=== PATIENT | male | born 1940 | race Caucasian/White ===

== ENCOUNTER 2017-02-26 00:21 | Emergency (ER) | payer MEDICARE, OTHER ==
[2017-02-26 00:39] VITALS: BP 145/88
[2017-02-26] MEDS ORDERED: Lidocaine 2% Jelly 10 ML Urojet ONE (00:57)
--- NOTE | 2017-02-26 00:59 | EDM.PDOC ---
ED HPI GENERAL MEDICAL PROBLEM - General Chief Complaint: Genitourinary Problem Stated Complaint: TROUBLE URINATING Time Seen by Provider: 02/26/17 00:26 Source of Information: Reports: Patient, Family History Limitations: Reports: No Limitations - History of Present Illness INITIAL COMMENTS - FREE TEXT/NARRATIVE: This is a 76-year-old male. Since yesterday evening he has had frequent urges to go urinate and he has been unable. Apparently Tuesday morning he went to see his doctor because he was having problems urinating and they placed a Johansen catheter but got no urine out. He states prior to it suddenly stopping last evening he was able to dribble a little bit but now he can't dribble at all. He really doesn't have a history of urinary retention though he has seen a urologist about 1 month ago for what appears to be a enlarged prostate and possibly a prostate infection when he was placed on Cipro for which she is taking now. He denies any fever or chills he denies any other acute symptoms. Bladder Pain Score (Numeric/FACES): 6 - Related Data Allergies Allergy/AdvReac Type Severity Reaction Status Date / Time No Known Allergies Allergy Verified 02/26/17 00:31 Home Meds: Home Meds Lisinopril 5 mg PO DAILY 03/08/14 [History] Vitamin E 1 cap PO DAILY 03/08/14 [History] atorvaSTATin [Lipitor] 10 mg PO QPM 03/08/14 [History] metFORMIN [Glucophage] 1,000 mg PO BID 03/08/14 [History] Aspirin [Halfprin] 81 mg PO DAILY 02/26/17 [History] Ciprofloxacin HCl [Cipro] 500 mg PO BID 02/26/17 [History] Sildenafil Citrate [Sildenafil] 20 mg PO DAILY PRN 02/26/17 [History] Tamsulosin [Flomax] 0.4 mg PO DAILY 02/26/17 [History] Social & Family History - Tobacco Use Smoking Status *Q: Former Smoker Years of Tobacco use: 5 Used Tobacco, but Quit: Yes Month Tobacco Last Used: 20 YRS AGO Second Hand Smoke Exposure: No - Alcohol Use Days Per Week of Alcohol Use: 0 Number of Drinks Per Day: 0 Total Drinks Per Week: 0 - Recreational Drug Use Recreational Drug Use: No Drug Use in Last 12 Months: No ED ROS GENERAL - Review of Systems Review Of Systems: See Below Constitutional: Denies: Fever, Chills HEENT: Reports: No Symptoms Respiratory: Reports: No Symptoms Cardiovascular: Reports: No Symptoms Endocrine: Reports: No Symptoms GI/Abdominal: Reports: Abdominal Pain. Denies: Nausea, Vomiting : Reports: Urgency, Urinary Retention Musculoskeletal: Reports: No Symptoms Skin: Reports: No Symptoms Neurological: Reports: No Symptoms Psychiatric: Reports: No Symptoms Hematologic/Lymphatic: Reports: No Symptoms ED EXAM, RENAL/ - Physical Exam Exam: See Below Exam Limited By: No Limitations General Appearance: Alert, WD/WN, No Apparent Distress Eye Exam: Bilateral Eye: Normal Inspection Ears: Normal External Exam Nose: Normal Inspection Throat/Mouth: Normal Inspection, Normal Lips, Normal Voice, No Airway Compromise Head: Normocephalic Neck: Supple Respiratory/Chest: No Respiratory Distress, Lungs Clear Cardiovascular: Regular Rate, Rhythm, No Murmur GI/Abdominal: Soft, Other (He does appear to have a small bulge of a bladder in the lower abdomen noted somewhat tender on palpation) Back Exam: Full Range of Motion Extremities: Normal Inspection, Normal Range of Motion Neurological: Alert, Oriented Psychiatric: Normal Affect, Normal Mood Skin Exam: Warm, Dry Course - Vital Signs Last Recorded V/S: Last Vital Signs Temp 98.5 F 02/26/17 00:36 Pulse 88 02/26/17 00:36 Resp 18 02/26/17 00:36 BP 145/88 H 02/26/17 00:36 Pulse Ox 97 02/26/17 00:36 - Orders/Labs/Meds Meds: Medications Discontinued Medications Generic Name Dose Route Start Last Admin Trade Name Tamir PRN Reason Stop Dose Admin Lidocaine HCl Confirm 02/26/17 00:57 Xylocaine 2% Jelly Administered 02/26/17 00:58 Dose 10 ml .ROUTE .STK-MED ONE - Re-Assessments/Exams Free Text/Narrative Re-Assessment/Exam: 02/26/17 01:31 Patient had approximately 750 mL of urine out. He feels so much better no abdominal pain now. His abdomen is soft and nontender. We will place a leg bag on him and gave him Johansen catheter care. He is to follow-up with Dr. Lyle on Tuesday morning for recheck and catheter removal. Departure - Departure Time of Disposition: 01:32 Disposition: Home, Self-Care 01 Condition: Good Clinical Impression: Urinary retention Benign prostatic hyperplasia Qualifiers: Lower urinary tract symptom presence: symptoms present Lower urinary tract symptom detail: urinary retention Qualified Code(s): N40.1 - Benign prostatic hyperplasia with lower urinary tract symptoms; R33.8 - Other retention of urine ; R33.8 - Other retention of urine - Discharge Information Referrals: Sajan Lyle MD [Primary Care Provider] - Forms: ED Department Discharge Additional Instructions: Continue with the Cipro and the Flomax, continue with the Johansen catheter care as instructed, follow-up with your doctor on Tuesday morning for reevaluation and possible catheter removal, return to the ER if your symptoms worsen or you run a fever greater than 101
[2017-02-26] MEDS ORDERED: Lidocaine 2% Jelly 10 ML Urojet MUCMEM ONE (01:53)
== END 2017-02-26 02:00 | disposition home or self-care (01) ==
LOC: JD.ED 00:21
DX: N40.1 Benign prostatic hyperplasia with lower urinary tract symptoms (principal); R33.8 Other retention of urine; Z79.899 Other long term (current) drug therapy; Z79.84 Long term (current) use of oral hypoglycemic drugs; Z79.82 Long term (current) use of aspirin; Z87.891 Personal history of nicotine dependence
CPT/HCPCS: 51702; 51798; 99283; 99283-25

== ENCOUNTER 2017-02-28 19:38 | Emergency (ER) | payer MEDICARE, OTHER ==
[2017-02-28 19:53] VITALS: BP 189/77
--- NOTE | 2017-02-28 21:01 | EDM.PDOC ---
ED HPI GENERAL MEDICAL PROBLEM - General Chief Complaint: General Stated Complaint: CATH TAKEN OUT/UNABLE TO URINATE Time Seen by Provider: 02/28/17 20:43 Source of Information: Reports: Patient History Limitations: Reports: No Limitations - History of Present Illness INITIAL COMMENTS - FREE TEXT/NARRATIVE: Patient is a 76-year-old male who presents to the ED complaining of urinary retention and increasing pain to his lower abdomen. Patient was evaluated in the ED this past Tuesday for urinary retention. Approximately 1 L of urine was drained out. Catheter was placed and then removed today at approximately 12:00 by PCP. Patient states since then has been unable to void. He continues to have increasing pain to his lower abdomen. He has a sensation to urinate but unable to. He denies any additional complaints. Bladder Pain Score (Numeric/FACES): 7 - Related Data Allergies Allergy/AdvReac Type Severity Reaction Status Date / Time No Known Allergies Allergy Verified 02/28/17 19:54 Home Meds: Home Meds Lisinopril 5 mg PO DAILY 03/08/14 [History] Vitamin E 1 cap PO DAILY 03/08/14 [History] atorvaSTATin [Lipitor] 10 mg PO QPM 03/08/14 [History] metFORMIN [Glucophage] 1,000 mg PO BID 03/08/14 [History] Aspirin [Halfprin] 81 mg PO DAILY 02/26/17 [History] Ciprofloxacin HCl [Cipro] 500 mg PO BID 02/26/17 [History] Sildenafil Citrate [Sildenafil] 20 mg PO DAILY PRN 02/26/17 [History] Tamsulosin [Flomax] 0.4 mg PO DAILY 02/26/17 [History] Past Medical History Cardiovascular History: Reports: High Cholesterol Genitourinary History: Reports: Prostate Disorder, Retention, Urinary Psychiatric History: Reports: None Social & Family History - Family History Family Medical History: Noncontributory - Tobacco Use Smoking Status *Q: Never Smoker Years of Tobacco use: 5 Used Tobacco, but Quit: Yes Month Tobacco Last Used: 20 YRS AGO Second Hand Smoke Exposure: No - Alcohol Use Days Per Week of Alcohol Use: 0 Number of Drinks Per Day: 0 Total Drinks Per Week: 0 - Recreational Drug Use Recreational Drug Use: No Drug Use in Last 12 Months: No ED ROS GENERAL - Review of Systems Review Of Systems: ROS reveals no pertinent complaints other than HPI. ED EXAM, GENERAL - Physical Exam Exam: See Below Exam Limited By: No Limitations General Appearance: Alert, WD/WN, Mild Distress Ears: Hearing Grossly Normal Nose: Normal Inspection Throat/Mouth: Normal Voice, No Airway Compromise Neck: Normal Inspection, Supple Respiratory/Chest: No Respiratory Distress, Lungs Clear, Normal Breath Sounds, No Accessory Muscle Use Cardiovascular: Normal Peripheral Pulses, Regular Rate, Rhythm Peripheral Pulses: 2+: Radial (L) GI/Abdominal: Normal Bowel Sounds, Soft, No Organomegaly, No Distention, Tender (Suprapubic region) Neurological: Alert, Oriented, Normal Cognition, No Motor/Sensory Deficits Psychiatric: Normal Affect, Normal Mood Skin Exam: Warm, Dry, Intact, Normal Color Course - Vital Signs Last Recorded V/S: Last Vital Signs Temp 97.6 F 02/28/17 19:50 Pulse 85 02/28/17 19:50 Resp 20 02/28/17 19:50 BP 189/77 H 02/28/17 19:50 Pulse Ox 100 02/28/17 19:50 - Re-Assessments/Exams Free Text/Narrative Re-Assessment/Exam: Johansen has been ordered. 2143 patient had approximately 600 mL of urine after Johansen placement. Patient's pain has resolved. Will will discharge patient home with a leg bag. He will follow up with urologist in the next few days for reevaluation. Discharge instructions as documented. Departure - Departure Time of Disposition: 21:46 Disposition: Home, Self-Care 01 Condition: Good Clinical Impression: Urinary retention due to benign prostatic hyperplasia, Urinary retention Benign prostatic hyperplasia Qualifiers: Lower urinary tract symptom presence: symptoms present Lower urinary tract symptom detail: urinary retention Qualified Code(s): N40.1 - Benign prostatic hyperplasia with lower urinary tract symptoms - Discharge Information Instructions: Benign Prostatic Hyperplasia, Acute Urinary Retention, Male, Easy -to-Read Referrals: Sajan Lyle MD [Primary Care Provider] - Forms: ED Department Discharge Additional Instructions: Please follow up with urologist this week for the first part of next week. Call and make an appointment tomorrow. Leave the Johansen in place until evaluated by urology. Return to the ED for any new or worsening symptoms.
== END 2017-02-28 22:18 | disposition home or self-care (01) ==
LOC: JD.ED 19:38
DX: N40.1 Benign prostatic hyperplasia with lower urinary tract symptoms (principal); R33.8 Other retention of urine; E78.00 Pure hypercholesterolemia, unspecified; Z79.899 Other long term (current) drug therapy; Z79.82 Long term (current) use of aspirin
CPT/HCPCS: 51702; 99283-25; 99284

== ENCOUNTER 2019-01-18 11:08 | Emergency (ER) | payer MEDICARE, OTHER ==
[2019-01-18 11:18] VITALS: BP 143/58; PULSE 57
[2019-01-18] MEDS ORDERED: Sodium Chloride 0.9% 500 ML IV ONE (11:44)
--- NOTE | 2019-01-18 11:46 | EDM.PDOC ---
ED HPI GENERAL MEDICAL PROBLEM - General Chief Complaint: Syncope Stated Complaint: [facility] Time Seen by Provider: 01/18/19 11:26 Source of Information: Reports: Patient History Limitations: Reports: No Limitations - History of Present Illness INITIAL COMMENTS - FREE TEXT/NARRATIVE: 78-year-old male arrives via [facility] following a syncopal episode. Patient reports that he was at [employer]. He was carrying a heavy basket and just finished [employer] shopping. He was at the counter when he began to feel lightheaded and had a syncopal episode. Reportedly he did vomit. Bystanders report he did hit his head. He states he does remember falling and feeling lightheaded prior to the syncopal episode. He does not recall hitting his head. At this time he states that he feels good. He denies any headaches, neck pain, nausea, chest pain, shortness of breath, fevers or chills. He denies any numbness or tingling in his extremities. He has a small hematoma to the dorsal right hand. He does take an 81 mg aspirin daily. Patient had quadruple bypass on November 29 at [facility] in [place]. He states he did not have an NH but he saw his primary because he "couldn't get air ". He states since then he has been feeling much better. His shortness of breath has significantly improved. Primary care providers Dr. Mills. Cardio vascular surgeon Dr. Govea and senior quality analyst Dr. Ramiro Alfaro. Reportedly did have a carotid ultrasound recently prior to the bypass and this was reportedly normal. Her it is a little more side. Heart rate upon arrival is 57 bpm. His metoprolol was recently cut from 25 mg twice a day to 12.5 mg daily. He states since his bypass his heart has been slower. Was faster prior to bypass. Onset: Today, Sudden - Related Data Allergies Allergy/AdvReac Type Severity Reaction Status Date / Time No Known Allergies Allergy Verified 01/18/19 12:09 Home Meds: Home Meds Lisinopril 5 mg PO DAILY 03/08/14 [History] Vitamin E 1 cap PO DAILY 03/08/14 [History] atorvaSTATin [Lipitor] 10 mg PO QPM 03/08/14 [History] metFORMIN [Glucophage] 1,000 mg PO BID 03/08/14 [History] Aspirin [Halfprin] 81 mg PO DAILY 02/26/17 [History] Ciprofloxacin HCl [Cipro] 500 mg PO BID 02/26/17 [History] Sildenafil Citrate [Sildenafil] 20 mg PO DAILY PRN 02/26/17 [History] Tamsulosin [Flomax] 0.4 mg PO DAILY 02/26/17 [History] Past Medical History Cardiovascular History: Reports: Bypass, High Cholesterol, Hypertension Genitourinary History: Reports: Prostate Disorder, Retention, Urinary Other Genitourinary History: prostate cancer, 45 treatments and in remission now Psychiatric History: Reports: None Endocrine/Metabolic History: Reports: Diabetes, Type II Other Hematologic History: takes iron daily Oncologic (Cancer) History: Reports: Prostate - Past Surgical History Cardiovascular Surgical History: Reports: Coronary Artery Bypass Other Cardiovascular Surgeries/Procedures: x4 november 2018 GI Surgical History: Reports: Colonoscopy, Hernia Repair/Other, Polypectomy, Other (See Below) Other GI Surgeries/Procedures: hernia repair x2, 12inches of bowel removed with polyp removal Social & Family History - Family History Family Medical History: Noncontributory - Tobacco Use Smoking Status *Q: Never Smoker - Caffeine Use Caffeine Use: Reports: Coffee ED ROS GENERAL - Review of Systems Review Of Systems: See Below Constitutional: Denies: Fever, Chills Respiratory: Denies: Shortness of Breath, Cough Cardiovascular: Reports: Lightheadedness, Syncope. Denies: Chest Pain, Edema GI/Abdominal: Reports: Vomiting. Denies: Abdominal Pain, Nausea Musculoskeletal: Denies: Neck Pain Skin: Reports: Wound (hematoma to the right dorsal hand) Neurological: Reports: Syncope. Denies: Headache, Numbness, Tingling - Physical Exam Exam: See Below Exam Limited By: No Limitations General Appearance: Alert, WD/WN, No Apparent Distress Eye Exam: Bilateral Eye: Normal Inspection, PERRL Ears: Normal External Exam, Normal Canal, Hearing Grossly Normal, Normal TMs Nose: Normal Inspection Throat/Mouth: Normal Inspection, Normal Lips, Normal Oropharynx, Normal Voice, No Airway Compromise Neck: Normal Inspection. No: Carotid Bruit Respiratory/Chest: No Respiratory Distress, Lungs Clear, Normal Breath Sounds Cardiovascular: Normal Peripheral Pulses, No Murmur, Bradycardia GI/Abdominal: Soft, Non-Tender, No Distention Neuro Exam (Abbreviated): Alert, Oriented, Normal Cognition Psychiatric: Normal Affect, Normal Mood Skin Exam: Warm, Dry, Normal Color EKG INTERPRETATION EKG Date: 01/18/19 Time: 12:25 Rhythm: Other (sinus bradycardia) Rate (Beats/Min): 50 Girard: Normal P-Wave: Present QRS: Normal ST-T: Normal QT: Normal Course - Vital Signs Last Recorded V/S: Last Vital Signs Temp 97.2 F 01/18/19 11:13 Pulse 57 L 01/18/19 11:13 Resp 16 01/18/19 11:13 BP 143/58 H 01/18/19 11:13 Pulse Ox 100 01/18/19 11:13 Orthostatic Blood Pressure [ 115/50 Standing] Orthostatic Blood Pressure [ 147/58 Supine] - Orders/Labs/Meds Orders: Active Orders 24 hr Category Date Time Status Blood Glucose Check, Bedside [RC] ONETIME Care 01/18/19 11:26 Active Cardiac Monitoring [RC] . DIRECTED Care 01/18/19 11:36 Active EKG Documentation Completion [RC] ASDIRECTED Care 01/18/19 11:37 Active Orthostatic Vital Signs [RC] ASDIRECTED Care 01/18/19 11:26 Active EKG 12 Lead [EK] Stat Ther 01/18/19 11:36 Ordered Labs: Laboratory Tests 01/18/19 01/18/19 01/18/19 Range/Units 11:50 11:50 11:50 WBC 5.36 (4.23-9.07) K/mm3 RBC 3.61 L (4.63-6.08) M/mm3 Hgb 10.0 L D (13.7-17.5) gm/dl Hct 31.5 L (40.1-51.0) % MCV 87.3 D (79.0-92.2) fl MCH 27.7 (25.7-32.2) pg MCHC 31.7 L (32.2-35.5) g/dl RDW Std Deviation 47.1 H (35.1-43.9) fL Plt Count 188 (163-337) K/mm3 MPV 9.2 L (9.4-12.3) fl Neut % (Auto) 86.0 H (34.0-67.9) % Lymph % (Auto) 7.3 L (21.8-53.1) % Sac % (Auto) 5.2 L (5.3-12.2) % Eos % (Auto) 0.9 (0.8-7.0) Baso % (Auto) 0.2 (0.1-1.2) % Neut # (Auto) 4.61 (1.78-5.38) K/mm3 Lymph # (Auto) 0.39 L (1.32-3.57) K/mm3 Sac # (Auto) 0.28 L (0.30-0.82) K/mm3 Eos # (Auto) 0.05 (0.04-0.54) K/mm3 Baso # (Auto) 0.01 (0.01-0.08) K/mm3 Manual Slide Review Abnormal smear Sodium 140 (136-145) mEq/L Potassium 4.5 (3.5-5.1) mEq/L Chloride 105 (98-107) mEq/L Carbon Dioxide 26 (21-32) mEq/L Anion Gap 13.5 (5-15) BUN 20 H (7-18) mg/dL Creatinine 1.8 H (0.7-1.3) mg/dL Est Cr Clr Drug Dosing 34.37 mL/min Estimated GFR (MDRD) 37 (>60) mL/min BUN/Creatinine Ratio 11.1 L (14-18) Glucose 161 H (83-115) mg/dL POC Glucose (83-110) mg/dL Calcium 8.8 (8.5-10.1) mg/dL Magnesium 1.7 L (1.8-2.4) mg/dl Total Bilirubin 0.3 (0.2-1.0) mg/dL AST 8 L (15-37) U/L ALT 13 L (16-63) U/L Alkaline Phosphatase 53 (46-116) U/L Troponin I < 0.017 (0.00-0.056) ng/mL NT-Pro-B Natriuret Pep 1077 H (0-450) pg/mL Total Protein 6.0 L (6.4-8.2) g/dl Albumin 3.1 L (3.4-5.0) g/dl Globulin 2.9 gm/dL Albumin/Globulin Ratio 1.1 (1-2) Urine Color (Yellow) Urine Appearance (Clear) Urine pH (5.0-8.0) Ur Specific [place] (1.005-1.030) Urine Protein (Negative) Urine Glucose (UA) (Negative) Urine Ketones (Negative) Urine Occult Blood (Negative) Urine Nitrite (Negative) Urine Bilirubin (Negative) Urine Urobilinogen (0.2-1.0) Ur Leukocyte Esterase (Negative) Urine RBC (0-5) /hpf Urine WBC (0-5) /hpf Ur Squamous Epith Cells (0-5) /hpf Urine Bacteria (FEW) /hpf Hyaline Casts (0-5) /lpf Urine Mucus (FEW) /hpf 01/18/19 01/18/19 01/18/19 Range/Units 12:52 13:00 14:14 WBC (4.23-9.07) K/mm3 RBC (4.63-6.08) M/mm3 Hgb (13.7-17.5) gm/dl Hct (40.1-51.0) % MCV (79.0-92.2) fl MCH (25.7-32.2) pg MCHC (32.2-35.5) g/dl RDW Std Deviation (35.1-43.9) fL Plt Count (163-337) K/mm3 MPV (9.4-12.3) fl Neut % (Auto) (34.0-67.9) % Lymph % (Auto) (21.8-53.1) % Sac % (Auto) (5.3-12.2) % Eos % (Auto) (0.8-7.0) Baso % (Auto) (0.1-1.2) % Neut # (Auto) (1.78-5.38) K/mm3 Lymph # (Auto) (1.32-3.57) K/mm3 Sac # (Auto) (0.30-0.82) K/mm3 Eos # (Auto) (0.04-0.54) K/mm3 Baso # (Auto) (0.01-0.08) K/mm3 Manual Slide Review Sodium (136-145) mEq/L Potassium (3.5-5.1) mEq/L Chloride (98-107) mEq/L Carbon Dioxide (21-32) mEq/L Anion Gap (5-15) BUN (7-18) mg/dL Creatinine (0.7-1.3) mg/dL Est Cr Clr Drug Dosing mL/min Estimated GFR (MDRD) (>60) mL/min BUN/Creatinine Ratio (14-18) Glucose (83-115) mg/dL POC Glucose 136 H (83-110) mg/dL Calcium (8.5-10.1) mg/dL Magnesium (1.8-2.4) mg/dl Total Bilirubin (0.2-1.0) mg/dL AST (15-37) U/L ALT (16-63) U/L Alkaline Phosphatase (46-116) U/L Troponin I < 0.017 (0.00-0.056) ng/mL NT-Pro-B Natriuret Pep (0-450) pg/mL Total Protein (6.4-8.2) g/dl Albumin (3.4-5.0) g/dl Globulin gm/dL Albumin/Globulin Ratio (1-2) Urine Color Yellow (Yellow) Urine Appearance Clear (Clear) Urine pH 5.5 (5.0-8.0) Ur Specific [place] 1.020 (1.005-1.030) Urine Protein Negative (Negative) Urine Glucose (UA) Negative (Negative) Urine Ketones Negative (Negative) Urine Occult Blood Negative (Negative) Urine Nitrite Negative (Negative) Urine Bilirubin Negative (Negative) Urine Urobilinogen 1.0 (0.2-1.0) Ur Leukocyte Esterase Negative (Negative) Urine RBC 0-5 (0-5) /hpf Urine WBC 0-5 (0-5) /hpf Ur Squamous Epith Cells 0-5 (0-5) /hpf Urine Bacteria Rare (FEW) /hpf Hyaline Casts 0-5 (0-5) /lpf Urine Mucus Few (FEW) /hpf Meds: Medications Discontinued Medications Generic Name Dose Route Start Last Admin Trade Name Freq PRN Reason Stop Dose Admin Sodium Chloride 500 mls @ 999 mls/hr 01/18/19 11:44 01/18/19 12:23 Normal Saline IV 01/18/19 12:14 999 mls/hr ONETIME ONE Administration - Radiology Interpretation Free Text/Narrative:: Chest: Two views of the chest were obtained. Comparison: No prior chest x-ray, prior chest CT of 08/13/13. Findings: Heart size and mediastinum are normal. Tortuous thoracic aorta is seen. Lungs show no acute parenchymal change. Diffuse degenerative spurring within the spine is seen with flowing osteophytes. Impression: 1. Nothing acute is appreciated on two-view chest x-ray. Head CT Technique: Multiple axial sections through the brain were obtained. Intravenous contrast was not utilized. Comparison: No prior intracranial imaging is available. Findings: Ventricles along with basal cisterns and sulci over the convexities are moderately prominent. 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 No other abnormal parenchymal densities are seen. No evidence of intracranial hemorrhage. No midline shift or mass effect is seen. Atherosclerotic calcification is noted within the carotid siphon. Very minimal area of mucosal thickening are scattered within the ethmoid sinuses which is most likely incidental. Visualized mastoid sinuses are clear. No acute calvarial abnormality is seen. Impression: 1. Senescent change as noted above. Nothing acute is appreciated on noncontrast head CT exam. - Re-Assessments/Exams Free Text/Narrative Re-Assessment/Exam: 01/18/19 13:49 Checked on the patient. He feels fine. His heart has been in the upper 40s to 50s and he is orthostatic. I feel the syncope today was related more to his drop in blood pressure and his low heart rate. We will repeat his troponin. He has no other complaints at this time and is resting comfortably. I reviewed the labs, ekg and imaging with the patient and his . 01/18/19 15:07 Repeat trop is negativ at <0.017. Discussed with Dr. Renyoso recommend holding beta heena while HR is <60. Should check vitals at home daily. Reviewed labs and plan with patient and his . Discharge instructions as documented. Departure - Departure Time of Disposition: 15:08 Disposition: Home, Self-Care 01 Condition: Fair Clinical Impression: Syncope, Orthostatic hypotension, Bradycardia - Discharge Information *PRESCRIPTION DRUG MONITORING PROGRAM REVIEWED*: No *COPY OF PRESCRIPTION DRUG MONITORING REPORT IN PATIENT WILLOW: No Instructions: Orthostatic Hypotension, Bradycardia, Adult, Syncope, Easy-to- Read Referrals: Sajan Lyle MD [Primary Care Provider] - Forms: ED Department Discharge Additional Instructions: Check your b/p and HR daily. Hold the metoprolol 12.5mg if your heart rate is less than 60. Follow-up with cardiology next week as planned. Make sure you are getting plenty of fluids. Take your time getting up and do not over exert your self, no lifting > 10 lbs. Please return to the ER should your symptoms change or worsen. - My Orders Last 24 Hours: My Active Orders 01/18/19 11:26 Blood Glucose Check, Bedside [RC] ONETIME Orthostatic Vital Signs [RC] ASDIRECTED 01/18/19 11:36 Cardiac Monitoring [RC] . DIRECTED EKG 12 Lead [EK] Stat 01/18/19 11:37 EKG Documentation Completion [RC] ASDIRECTED - Assessment/Plan Last 24 Hours: My Active Orders 01/18/19 11:26 Blood Glucose Check, Bedside [RC] ONETIME Orthostatic Vital Signs [RC] ASDIRECTED 01/18/19 11:36 Cardiac Monitoring [RC] . DIRECTED EKG 12 Lead [EK] Stat 01/18/19 11:37 EKG Documentation Completion [RC] ASDIRECTED
--- NOTE | 2019-01-18 12:28 | CR ---
Chest: Two views of the chest were obtained. Comparison: No prior chest x-ray, prior chest CT of 08/13/13. Findings: Heart size and mediastinum are normal. Tortuous thoracic aorta is seen. Lungs show no acute parenchymal change. Diffuse degenerative spurring within the spine is seen with flowing osteophytes. Impression: 1. Nothing acute is appreciated on two-view chest x-ray. Diagnostic code #2
--- NOTE | 2019-01-18 12:36 | CT ---
Head CT Technique: Multiple axial sections through the brain were obtained. Intravenous contrast was not utilized. Comparison: No prior intracranial imaging is available. Findings: Ventricles along with basal cisterns and sulci over the convexities are moderately prominent. 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 No other abnormal parenchymal densities are seen. No evidence of intracranial hemorrhage. No midline shift or mass effect is seen. Atherosclerotic calcification is noted within the carotid siphon. Very minimal areas of mucosal thickening are scattered within the ethmoid sinuses which is most likely incidental. Visualized mastoid sinuses are clear. No acute calvarial abnormality is seen. Impression: 1. Senescent change as noted above. Nothing acute is appreciated on noncontrast head CT exam. Diagnostic code #2
== END 2019-01-18 15:20 | disposition home or self-care (01) ==
LOC: JD.ED 11:08
DX: I95.1 Orthostatic hypotension (principal); R00.1 Bradycardia, unspecified; I10 Essential (primary) hypertension; E78.5 Hyperlipidemia, unspecified; Z79.82 Long term (current) use of aspirin; Z79.899 Other long term (current) drug therapy
CPT/HCPCS: 36415; 70450; 71046; 80053; 81001; 82962; 83735; 83880; 84484; 85025; 93005; 99285; J7040; 93010; 99284

== ENCOUNTER 2019-08-25 12:39 | Emergency (ER) | payer MEDICARE, OTHER ==
--- NOTE | 2019-08-25 14:34 | EDM.PDOC ---
ED HPI GENERAL MEDICAL PROBLEM - General Chief Complaint: ENT Problem Stated Complaint: LT EAR PLUGGED UP Time Seen by Provider: 08/25/19 13:49 Source of Information: Reports: Patient History Limitations: Reports: No Limitations - History of Present Illness INITIAL COMMENTS - FREE TEXT/NARRATIVE: Demetrio Hawk is a 79-year-old male who presents the emergency room with chief complaints of bilateral ears clogged. He has a significant history of syncope, BPH, orthostatic hypotension and bradycardia. Denies any pain, fever or chills. He just reports he is ears feel clogged and is hard for him to hear. He denies any ear pain. Onset: Today Onset Date: 08/25/19 Onset Time: 12:00 Location: Reports: Other (Lateral ears) Severity: Mild Improves with: Reports: None Worsens with: Reports: None Associated Symptoms: Reports: No Other Symptoms. Denies: Fever/Chills - Related Data Allergies Allergy/AdvReac Type Severity Reaction Status Date / Time No Known Allergies Allergy Verified 01/18/19 12:09 Home Meds: Home Meds Lisinopril 5 mg PO DAILY 03/08/14 [History] Vitamin E 1 cap PO DAILY 03/08/14 [History] atorvaSTATin [Lipitor] 10 mg PO QPM 03/08/14 [History] metFORMIN [Glucophage] 1,000 mg PO BID 03/08/14 [History] Aspirin [Halfprin] 81 mg PO DAILY 02/26/17 [History] Ciprofloxacin HCl [Cipro] 500 mg PO BID 02/26/17 [History] Sildenafil Citrate [Sildenafil] 20 mg PO DAILY PRN 02/26/17 [History] Tamsulosin [Flomax] 0.4 mg PO DAILY 02/26/17 [History] Past Medical History HEENT History: Reports: Cataract, Hard of Hearing, Other (See Below) Other HEENT History: plugged ears. Cardiovascular History: Reports: Bypass, High Cholesterol, Hypertension Genitourinary History: Reports: Prostate Disorder, Retention, Urinary Other Genitourinary History: prostate cancer, 45 treatments and in remission now Psychiatric History: Reports: None Endocrine/Metabolic History: Reports: Diabetes, Type II Hematologic History: Reports: Anemia Other Hematologic History: takes iron daily Oncologic (Cancer) History: Reports: Prostate Other Oncologic History: radiation for prostate CA. - Infectious Disease History Infectious Disease History: Reports: Chicken Pox, Measles - Past Surgical History HEENT Surgical History: Reports: Cataract Surgery Cardiovascular Surgical History: Reports: Coronary Artery Bypass Other Cardiovascular Surgeries/Procedures: x4 november 2018 GI Surgical History: Reports: Colonoscopy, Hernia Repair/Other, Polypectomy, Other (See Below) Other GI Surgeries/Procedures: hernia repair x2, 12inches of bowel removed with polyp removal Social & Family History - Family History Family Medical History: Noncontributory - Tobacco Use Smoking Status *Q: Never Smoker Second Hand Smoke Exposure: No - Caffeine Use Caffeine Use: Reports: Coffee - Recreational Drug Use Recreational Drug Use: No ED ROS ENT - Review of Systems Review Of Systems: See Below Constitutional: Denies: Fever, Chills HEENT: Reports: Other (Bilateral ears are clogged). Denies: Ear Discharge, Ear Pain Respiratory: Reports: No Symptoms Cardiovascular: Reports: No Symptoms Endocrine: Reports: No Symptoms GI/Abdominal: Reports: No Symptoms : Reports: No Symptoms Musculoskeletal: Reports: No Symptoms Skin: Reports: No Symptoms Neurological: Reports: No Symptoms Psychiatric: Reports: No Symptoms Hematologic/Lymphatic: Reports: No Symptoms Immunologic: Reports: No Symptoms ED EXAM, ENT - Physical Exam Exam: See Below Exam Limited By: No Limitations General Appearance: Alert, WD/WN, No Apparent Distress Ears: Normal External Exam, Normal Canal, Hearing Grossly Normal, Cerumen Impaction (bilaterally) Course - Vital Signs Last Recorded V/S: Last Vital Signs Temp 97.1 F 08/25/19 13:49 Pulse 73 08/25/19 13:49 Resp 20 08/25/19 13:49 BP 176/66 H 08/25/19 13:49 Pulse Ox 96 08/25/19 13:49 - Orders/Labs/Meds Orders: Active Orders 24 hr Category Date Time Status Ear Irrigation [RC] ASDIRECTED Care 08/25/19 14:28 Active - Re-Assessments/Exams Free Text/Narrative Re-Assessment/Exam: 08/25/19 14:32 Demetrio Hawk complaints of bilateral ears being clogged. He received ear irrigation and his TMs are intact bilaterally. Patient has a significant history of syncope, BPH, orthostatic hypotension and bradycardia. Patient denies any ear pain, fever or chills. I instructed patient to follow-up with his PCP as needed. Instructed patient to return to the emergency room for any new or acute recent symptoms. Patient verbalized understanding and is comfortable plan for discharge. Patient is stable at time of discharge. Departure - Departure Time of Disposition: 14:46 Disposition: Home, Self-Care 01 Condition: Good Clinical Impression: Impacted ear wax Qualifiers: Laterality: bilateral Qualified Code(s): H61.23 - Impacted cerumen, bilateral - Discharge Information Instructions: Earwax Buildup, Adult Referrals: Sajan Lyle MD [Primary Care Provider] - Forms: ED Department Discharge Additional Instructions: He was seen and evaluated today for earwax buildup. Can try to use over-the- counter remedies for this ailment. Recommend that you follow-up with your PCP as needed. Return to the emergency room for any new or acute worsening symptoms. Sepsis Event Note - Evaluation Sepsis Screening Result: No Definite Risk - Focused Exam Vital Signs: Vital Signs Temp Pulse Resp BP Pulse Ox 08/25/19 13:49 97.1 F 73 20 176/66 H 96 Date Exam was Performed: 08/25/19 Time Exam was Performed: 14:46 - My Orders Last 24 Hours: My Active Orders 08/25/19 14:28 Ear Irrigation [RC] ASDIRECTED - Assessment/Plan Last 24 Hours: My Active Orders 08/25/19 14:28 Ear Irrigation [RC] ASDIRECTED
== END 2019-08-25 15:00 | disposition home or self-care (01) ==
LOC: JD.ED 12:39
CPT/HCPCS: 99282

== ENCOUNTER 2023-01-26 07:03 | Day surgery (SDC) | payer MEDICARE, OTHER ==
[~2023-01-26 07:03] MED LIST: Lactated Ringers 1,000 ML IV SCH; Lidocaine 1% 6 ML ONE; Propofol 200 MG/20 ML SDV ONE; Sodium Chloride 0.9% 10 ML Syringe FLUSH PRN; Sodium Chloride 0.9% 10 ML Syringe FLUSH SCH
[2023-01-26 09:58] VITALS: BP 145/60; PULSE 58
== END 2023-01-26 10:20 | disposition home or self-care (01) ==
LOC: JD.SDS 07:03
PROVIDERS: ATTEND Surgery
DX: D64.9 Anemia, unspecified (principal); K29.80 Duodenitis without bleeding; D12.2 Benign neoplasm of ascending colon; D12.3 Benign neoplasm of transverse colon; K29.50 Unspecified chronic gastritis without bleeding; K21.00 Gastro-esophageal reflux disease with esophagitis, without bleeding; K44.9 Diaphragmatic hernia without obstruction or gangrene; K31.A19 Gastric intestinal metaplasia without dysplasia, unspecified site; K22.70 Barrett's esophagus without dysplasia; K64.8 Other hemorrhoids; Z85.038 Personal history of other malignant neoplasm of large intestine; Z98.0 Intestinal bypass and anastomosis status; Z90.49 Acquired absence of other specified parts of digestive tract; E78.2 Mixed hyperlipidemia; I25.10 Atherosclerotic heart disease of native coronary artery without angina pectoris; I12.9 Hypertensive chronic kidney disease with stage 1 through stage 4 chronic kidney disease, or unspecified chronic kidney disease; E11.22 Type 2 diabetes mellitus with diabetic chronic kidney disease; N18.30 Chronic kidney disease, stage 3 unspecified; E21.3 Hyperparathyroidism, unspecified; Z87.891 Personal history of nicotine dependence; Z79.82 Long term (current) use of aspirin; Z79.84 Long term (current) use of oral hypoglycemic drugs; Z79.899 Other long term (current) drug therapy
CPT/HCPCS: 43239; 45380; 82947; J2704; J7120; 00813; 88305; 88342; 99100; J3490

== ENCOUNTER 2023-03-07 17:07 | Emergency (ER) | payer MEDICARE, OTHER ==
[2023-03-07] MEDS ORDERED: Acetaminophen/HYDROcodone 325-5 MG Tab PO ONE (20:19)
[2023-03-07 20:48] VITALS: BP 136/74; PULSE 74
== END 2023-03-07 20:35 | disposition home or self-care (01) ==
LOC: JD.ED 17:07
DX: S22.078A Other fracture of T9-T10 vertebra, initial encounter for closed fracture (principal); E78.00 Pure hypercholesterolemia, unspecified; I10 Essential (primary) hypertension; E11.9 Type 2 diabetes mellitus without complications; Z79.84 Long term (current) use of oral hypoglycemic drugs; Z79.899 Other long term (current) drug therapy
CPT/HCPCS: 99284; A9270; 99283

== ENCOUNTER 2023-05-11 07:25 | Day surgery (SDC) | payer MEDICARE, OTHER ==
[~2023-05-11 07:25] MED LIST changes: +Bupivacaine 0.5% 30 ML SDV ONE; +EPINEPHrine 1 MG/ML SDV ONE; -Lidocaine 1% 6 ML ONE; -Propofol 200 MG/20 ML SDV ONE; +Sodium Chloride 0.9% 50 ML SDV ONE
[2023-05-11] MEDS ORDERED: Midazolam 1 MG/ML 2 ML SDV ONE (07:59)
[2023-05-11] MEDS ORDERED: fentaNYL 100 MCG/2 ML SDV ONE (07:59)
[2023-05-11] MEDS ORDERED: Propofol 200 MG/20 ML SDV ONE (07:59)
[2023-05-11] MEDS ORDERED: Lidocaine 2% 5 ML SDV ONE (08:04)
[2023-05-11] MEDS ORDERED: Lactated Ringers 1,000 ML IV SCH (08:30)
[2023-05-11] MEDS ORDERED: Phenylephrine 1% 10 MG/ML SDV ONE (08:48)
[2023-05-11] MEDS ORDERED: ceFAZolin 2 GM Vial ONE (08:48)
[2023-05-11] MEDS ORDERED: Sodium Chloride 0.9% 100 ML ONE (08:48)
[2023-05-11] MEDS ORDERED: fentaNYL 100 MCG/2 ML SDV IVPUSH PRN (09:08)
[2023-05-11] MEDS ORDERED: HYDROmorphone 0.5 MG/0.5 ML Syringe IVPUSH PRN (09:08)
[2023-05-11] MEDS ORDERED: Ondansetron 4 MG/2 ML SDV IVPUSH PRN (09:08)
[2023-05-11 10:45] VITALS: BP 143/79; PULSE 72
== END 2023-05-11 10:35 | disposition home or self-care (01) ==
LOC: JD.SDS 07:25
PROVIDERS: ATTEND Surgery
DX: C61 Malignant neoplasm of prostate (principal); C79.51 Secondary malignant neoplasm of bone; I10 Essential (primary) hypertension; E78.2 Mixed hyperlipidemia; I25.10 Atherosclerotic heart disease of native coronary artery without angina pectoris; E11.9 Type 2 diabetes mellitus without complications; Z87.891 Personal history of nicotine dependence; Z79.84 Long term (current) use of oral hypoglycemic drugs; Z79.82 Long term (current) use of aspirin; Z79.899 Other long term (current) drug therapy
CPT/HCPCS: 36561; 71045; 76000; 82947; C1788; J0171; J0665; J0690; J1642; J2250; J2371; J2704; J3010; J3490; J7120

== ENCOUNTER 2024-04-17 15:43 | Emergency (ER) | payer MEDICARE, OTHER ==
[2024-04-17 16:43] LABS: HEMATOCRIT 21.2 % (42.0-52.0); IMMATURE GRAN PERCENT AUTO 5.7 % (0.0-0.4); LYMPHOCYTES ABSOLUTE AUTO 0.3 K/mm3 (1.0-4.8); LYMPHOCYTES PERCENT AUTO 8.2 % (24.0-44.0); MEAN CORPUSCULAR HEMOGLOBIN 23.5 pg (28.0-32.0); MEAN CORPUSCULAR HGB CONC 26.9 g/dl (32.0-36.0); MEAN CORPUSCULAR VOLUME 87.2 fl (83.0-99.0); MEAN PLATELET VOLUME 9.3 fl (9.4-12.4); MONOCYTES ABSOLUTE AUTO 0.3 K/mm3 (0.0-0.8); MONOCYTES PERCENT AUTO 7.9 % (0.0-8.0); NEUTROPHILS ABSOLUTE AUTO 2.8 K/mm3 (1.8-7.7); NEUTROPHILS PERCENT AUTO 78.2 % (41.0-71.0); PLATELET COUNT,PLT 222 K/mm3 (150-400); RED BLOOD CELL COUNT 2.43 M/mm3 (4.52-5.90); WHITE BLOOD CELL COUNT,WBC 3.53 K/mm3 (3.9-11.3)
[2024-04-17 17:01] LABS: HEMOGLOBIN 5.7 gm/dl (14.0-18.0)
[2024-04-17] MEDS ORDERED: Sodium Chloride 0.9% 10 ML Syringe FLUSH PRN (17:06)
[2024-04-17 17:07] LABS: A/G RATIO 0.6 (1-2); ALBUMIN 2.2 g/dl (3.4-5.0); ANION GAP 15.2 (5-15); BILIRUBIN TOTAL 0.6 mg/dL (0.2-1.0); BUN/CREATININE RATIO 15.5 (14-18); C-REACTIVE PROTEIN 4.72 mg/dL (<0.30); CALCIUM 8.3 mg/dL (8.5-10.1); CREATININE 1.1 mg/dL (0.7-1.3); EST CRCL DRUG DOSING (CG) 50.88 mL/min; POTASSIUM,K 4.2 mEq/L (3.5-5.1)
[2024-04-17] MEDS: Sodium Chloride 0.9% 250 ML ONE ×2 (19:05→22:24)
[2024-04-18 01:43] VITALS: BP 141/59; PULSE 79
== END 2024-04-18 01:25 | disposition home or self-care (01) ==
LOC: JD.ED 15:43
DX: R51.9 Headache, unspecified (principal); D64.9 Anemia, unspecified; I10 Essential (primary) hypertension; E78.00 Pure hypercholesterolemia, unspecified; E11.9 Type 2 diabetes mellitus without complications; Z79.899 Other long term (current) drug therapy
CPT/HCPCS: 36415; 36430; 70450; 80053; 85025; 86140; 86850; 86900; 86901; 86922; 99285; J7050; P9016